=== PATIENT | female | born 1960 | race African-American/Black ===

== ENCOUNTER 2024-04-16 22:01 | Emergency (ER) | payer BC, SELFPAY ==
[2024-04-16] MEDS ORDERED: Acetaminophen 500 MG TAB ONE (22:22)
[2024-04-16] MEDS ORDERED: Aspirin Chewable 81 MG TAB ONE (22:22)
[2024-04-16] MEDS ORDERED: Sodium Chloride 0.9% 1,000 ML ONE (22:23)
[2024-04-16] MEDS ORDERED: Nitroglycerin 0.4 MG TAB 1 EACH ONE (22:23)
[2024-04-16 22:30] LABS: #Basophils 0.1 thou/uL (0.0-0.2); #Eosinphils 0.2 thou/uL (0.0-0.7); #Lymphocytes 1.4 thou/uL (1.20-3.40); #Monocytes 0.4 thou/uL (0.11-0.59); %Basophils 1.7 % (0.0-1.0); %Eosinophils 4.3 % (0.0-10.0); %Lymphocytes 35.4 % (21.0-51.0); %Monocytes 9.1 % (0.0-10.0); %Neutrophils 49.5 % (42.0-75.0); Hematocrit 38.6 % (36.0-47.0); Hemoglobin 12.5 g/dL (12.0-16.0); Mean Corpuscular HGB CONC 32.5 g/dL (32.0-36.0); Mean Corpuscular Hemoglobin 26.4 pg (27.0-31.0); Mean Corpuscular Volume 81.1 fl (78.0-98.0); Mean Platelet Volume 10.3 fL (7.4-10.4); Platelet Count 235 10x3/uL (130-400); RBC Distribution Width 11.7 % (11.5-14.5); Red Blood Cell (RBC) Count 4.76 mill/uL (4.20-5.40)
[2024-04-16 22:44] LABS: ALT (SGPT) 17 U/L (8-55); AST (SGOT) 18 U/L (5-34); Albumin 4.1 g/dL (3.4-4.8); Alkaline Phosphatase 91 U/L (40-110); Anion Gap 15 mmol/L (10-20); BUN (Urea Nitrogen) 12 mg/dL (9.8-20.1); Bilirubin, Total 0.8 mg/dL (0.2-1.2); Calc. Creatinine Clearance 0 mL/min (70-130); Calcium 10.4 mg/dL (7.8-10.44); Carbon Dioxide 24 mmol/L (23-31); Chloride 104 mmol/L (98-107); Estimated GFR 46; Globulin 3.5 g/dL (2.4-3.5); Glucose 123 mg/dL (80-115); Potassium 3.8 mmol/L (3.5-5.1); Protein, Total 7.6 g/dL (5.8-8.1); Sodium 139 mmol/L (136-145)
[2024-04-16 22:46] LABS: Troponin I Less than 0.010 ng/mL (< 0.028)
[2024-04-16] MEDS ORDERED: Amlodipine 5 MG TAB ONE (23:09)
[2024-04-16] MEDS ORDERED: Metoclopramide HCl 10 MG (2 mL) VIAL ONE (23:34)
[2024-04-16 23:54] LABS: Bilirubin Negative (Negative); Blood, Urine Negative (Negative); Clarity Clear (Clear); Glucose, Urine (Dipstick) Negative (Negative); Ketone, Urine Negative (Negative); Leukocyte Trace (Negative); Nitrite Negative (Negative); Protein, Urine (Dipstick) 30 mg/dL (Neg-Trace); Specific Gravity, Urine 1.015 (1.005-1.030); Urobilinogen 0.2 mg/dL (Less than 2)
[2024-04-16 23:59] LABS: Bacteria/HPF None Seen HPF (None Seen); CAUTI Indications for Culture Dysuria,urgency,freq; RBC/HPF None Seen HPF (0-3); Squamous Epithelial None Seen HPF (0-3); WBC/HPF 0-3 HPF (0-3)
[2024-04-17] LABS: Urine Culture Reflex No No
== END 2024-04-17 01:25 | disposition short-term general hospital (02) ==
LOC: NAV ERS 22:01
DX: I10 Essential (primary) hypertension (principal); E11.9 Type 2 diabetes mellitus without complications
CPT/HCPCS: 71045; 80053; 81001; 84484; 85025; 85379; 93005; 96361; 96374; J2765; J7030